=== PATIENT | female | born 1975 | race Caucasian/White ===

== ENCOUNTER 2020-11-16 15:00 | Emergency (ER) | payer OTHER, SELFPAY ==
[2020-11-16 15:11] VITALS: BP 149/82; PULSE 79; RESP 16; TEMP 36.5; O2SAT 99
--- NOTE | 2020-11-16 15:13 | ED.ABDPAIN ---
HPI - Abdominal Pain General Chief Complaint: Abdominal Pain Stated Complaint: Abdominal Pain History of Present Illness HPI narrative: This is a 45-year-old comes in complaining eating [employer] approximately 9:00 last night states that she started nausea and vomiting that continued throughout the night until approximately 2 AM patient states she did have some diarrhea and denies any fever. Patient states that she has a history of ulcers and has not taken the medication and does not know the name of the medications. Patient states that the vomiting has went away but she is still nauseated. Related Data Home Medications Medication Instructions Recorded Confirmed aspirin [Adult Aspirin] 81 mg PO DAILY 11/16/20 11/16/20 Allergies Allergy/AdvReac Type Severity Reaction Status Date / Time Penicillins Allergy Intermediate Hives / Verified 11/16/20 15:25 Red Face tomato Allergy Mild hives Verified 11/16/20 15:25 Review of Systems Review of Systems: CONSTITUTIONAL: Denies fever, chills, or sweats. EYES: Denies visual changes, redness, or discharge. ENT: Denies rhinorrhea, congestion, sore throat, or otalgia. CARDIOVASCULAR:Denies chest pain, palpitations, or edema. RESPIRATORY: Denies cough or dyspnea. GASTROINTESTINAL: Reports abdominal pain, nausea, vomiting, or diarrhea. GENITOURINARY: Denies dysuria or hematuria. SKIN:Denies rash or itching. MUSCULOSKELETAL:Denies back pain, joint pain, or myalgia. NEUROLOGIC: Denies headache, numbness, or weakness. PSYCHIATRIC:Denies anxiety or depression PMFSH Comments At time as signature, I have reviewed and agree with nursing past medical, social, surgical and family history. Please see nursing chart for further information. There is no relevant family history pertinent to the presenting complaint. Exam Narrative: GENERAL:Well-appearing, well-nourished, and in no acute distress. HEAD:Normocephalic, atraumatic. EYES: PERRLA and EOMI. ENT: Nares clear, no rhinorrhea or epistaxis. Mucous membranes moist. NECK: Supple. CHEST: Clear to auscultation. No respiratory distress. HEART: Regular rate and rhythm. Normal peripheral pulses. ABDOMEN: Soft, nontender, normal active bowel sounds. EXTREMITIES: Normal range of motion. No edema. SKIN: Warm, dry, no rash. NEURO: No focal deficits. Alert and oriented x3. Course Vital Signs Vital signs: Vital Signs Temperature 97.7 F 11/16/20 15:11 Pulse Rate 79 11/16/20 15:11 Respiratory Rate 16 11/16/20 15:11 Blood Pressure 149/82 H 11/16/20 15:11 Pulse Oximetry 99 11/16/20 15:11 Temperature 97.7 F 11/16/20 15:11 Pulse Rate 79 11/16/20 15:11 Respiratory Rate 16 11/16/20 15:11 Blood Pressure 149/82 H 11/16/20 15:11 Pulse Oximetry 99 11/16/20 15:11 MDM - Abdominal Pain Differential Diagnosis Differential diagnosis: Likely abdominal pain, acute appendicitis, constipation and gastroenteritis Lab Data Labs: Urine Glucose Negative Reference Range: Negative Urine Bilirubin 1+ Reference Range: Negative Urine Ketone Trace Reference Range: Negative Urine Specific [place] 1.030 Reference Range:1.001-1.035 Urine Blood Negative Reference Range: Negative * * Urine pH 6.0 Reference Range: 5.0-9.0 Urine Protein 1+ Reference Range: Negative Urine Urobilinogen 0.2 Reference Range: 0.2-1.0 Urine Nitrate
[2020-11-16] MEDS: ONDANSETRON HCL ODT 4 MG TABLET PO (15:25)
--- NOTE | 2020-11-16 15:52 | PC.NURSE ---
decrease in nausea
== END 2020-11-16 15:38 | disposition home or self-care (01) ==
PROVIDERS: Emergency Provider Nurse Practitioner Family
DX: N30.00 Acute cystitis without hematuria (principal); Z86.73 Personal history of transient ischemic attack (TIA), and cerebral infarction without residual deficits
CPT/HCPCS: 81003; 99213; A9270; G0463

== ENCOUNTER 2021-11-11 18:20 | Emergency (ER) | payer OTHER, SELFPAY ==
--- NOTE | 2021-11-11 18:42 | ED.HA ---
HPI - Headache General Chief Complaint: Headache Stated Complaint: Migraine Time Seen by Provider: 11/11/21 19:02 Mode of arrival: ambulatory Limitations: no limitations History of Present Illness HPI Narrative: 46-year-old female presents with concern for headache. She reports headache started today. She reports history of migraine. Reports today she has had right-sided head pain that is radiating to her right-sided neck and her ear. She denies any [id number] medication for her headache. She also reports over the last 4 to 5 days she has had a cough with some runny nose. She denies nausea, vomiting, vision changes, weakness in any extremity. MD elicited complaint: headache Related Data Home Medications Medication Instructions Recorded Confirmed aspirin 81 mg tablet 81 mg PO DAILY 11/16/20 11/16/20 Lipitor 11/11/21 carvedilol 6.25 mg tablet mg 11/11/21 clopidogrel 75 mg tablet (Plavix) mg 11/11/21 furosemide 40 mg tablet mg 11/11/21 lisinopril 5 mg tablet mg 11/11/21 nitroglycerin 11/11/21 potassium chloride 10 mEq meq PO 11/11/21 tablet,extended release Allergies Allergy/AdvReac Type Severity Reaction Status Date / Time Penicillins Allergy Intermediate Hives / Verified 11/16/20 15:25 Red Face tomato Allergy Mild hives Verified 11/16/20 15:25 Review of Systems Review of Systems: CONSTITUTIONAL: Denies malaise, chills, sweats, or fever. EYES: Denies visual changes, redness, or discharge. ENT: Reports rhinorrhea, ear pain. Denies congestion, sinus pain, sore throat. CARDIOVASCULAR: Denies chest pain, palpitations, or edema. RESPIRATORY: Report cough. Denies dyspnea. GASTROINTESTINAL: Denies nausea, vomiting MUSCULOSKELETAL: Denies myalgia. NEUROLOGIC: Denies numbness, weakness. Reports headache. All systems reviewed & are unremarkable except as noted in HPI and below PMFSH Comments At time of signature, agree with nursing past medical, surgical, social and family history. There is no relevant family history pertinent to the presenting complaint Exam Narrative: GENERAL: Well-appearing, well-nourished, and in no acute distress. HEAD: Normocephalic, atraumatic. EYES: PERRLA, sclera clear, and EOMI. No nystagmus. ENT: Nares clear, turbinates pink, no rhinorrhea or epistaxis. Mucous membranes moist. TM pearly villar with sharp light reflex bilaterally; no tragal tenderness. Oropharynx without erythema or lesions. Tonsils not enlarged and without exudate. NECK: Supple. No lymphadenopathy. No jugular venous distension, thyromegaly, or carotid bruits. Carotids were easily palpable bilaterally. CHEST: No respiratory distress. Clear to auscultation. No bony deformities, no asymmetry. Speaks in full sentences. HEART: Regular rate and rhythm. No murmur heard. Normal peripheral pulses. ABDOMEN: Soft, nontender, nondistended, normal active bowel sounds, no palpable masses. EXTREMITIES: Normal range of motion. No edema. Normal strength and sensation. SKIN: Warm, dry, no visible rash. NEURO: Alert and oriented x3. No focal deficits. Cranial nerves II through XII grossly intact PSYCH: Normal mood and affect Course Course Emergency Course: Patient is aware of diagnosis, understands and agrees to treatment plan. Anticipatory guidance given. Patient agrees to follow-up as directed and is aware of reasons to seek care at the emergency department. Portions of this record may have been created with voice recognition software Level of Care: Express Care Visit Vital Signs Vital signs: Reviewed. MDM - Headache MDM Narrative Medical decision making narrative: The patient presents with an acute onset headache for 1 day in duration. Patient has no past history of headaches. There is not a history of anticoagulation, trauma, , cancer or immunocompromised state. Mental status was normal, no neurological deficits were noted. Differential Diagnosis considered includes hypertensive emergency, subarachnoid
[2021-11-11 18:47] VITALS: BP 107/60; PULSE 62; RESP 16; TEMP 36; O2SAT 98
[2021-11-11] MEDS: KETOROLAC (*BKC) 60 MG/2 ML VIAL IM (19:08)
== END 2021-11-11 19:40 | disposition home or self-care (01) ==
PROVIDERS: Emergency Provider Nurse Practitioner
DX: R51.9 Headache, unspecified (principal); Z20.822 Contact with and (suspected) exposure to COVID-19; Z79.82 Long term (current) use of aspirin; E78.00 Pure hypercholesterolemia, unspecified; I25.2 Old myocardial infarction; Z86.73 Personal history of transient ischemic attack (TIA), and cerebral infarction without residual deficits; Z86.16 Personal history of COVID-19
CPT/HCPCS: 87426; 96372; 99213; C9803; G0463; J1885

== ENCOUNTER 2023-01-31 13:02 | Emergency (ER) | payer OTHER, SELFPAY ==
[2023-01-31 13:19] VITALS: BP 112/70; PULSE 81; RESP 16; TEMP 36.6; O2SAT 98
--- NOTE | 2023-01-31 13:28 | ED.DENTAL ---
HPI - Dental/Oral General Chief complaint: Dental/Oral Stated complaint: Dental Pain Time Seen by Provider: 01/31/23 13:20 Source: patient Mode of arrival: ambulatory Limitations: no limitations History of Present Illness HPI Narrative: Lula is a 48-year-old female patient presenting to the clinic today with complaints left upper dental pain. She reports that she has had this for over the last few days. No known fever chills. Is having increase in swelling and pain to the left upper maxilla area. Very poor dentition. Has a dentist appointment scheduled for next . Related Data Home Medications Medication Instructions Recorded Confirmed aspirin 81 mg tablet 81 mg PO DAILY 11/16/20 11/16/20 Lipitor 11/11/21 carvedilol 6.25 mg tablet mg 11/11/21 furosemide 40 mg tablet mg 11/11/21 lisinopril 5 mg tablet mg 11/11/21 nitroglycerin 11/11/21 potassium chloride 10 mEq meq PO 11/11/21 tablet,extended release rivaroxaban 2.5 mg tablet (Xarelto) mg 01/31/23 sacubitril 49 mg-valsartan 51 mg tablet 01/31/23 tablet (Entresto) Allergies Allergy/AdvReac Type Severity Reaction Status Date / Time Penicillins Allergy Intermediate Hives / Verified 11/16/20 15:25 Red Face tomato Allergy Mild hives Verified 11/16/20 15:25 Review of Systems Review of Systems: Pertinent positives per HPI. Patient denies any fever, chills, rash, headache, visual changes, dizziness, cough, runny nose, sore throat, shortness of breath, chest pain, palpitations, nausea, vomiting, diarrhea, constipation, abdominal pain, or any urinary issues. PMFSH Comments At the time of my signature, I reviewed and agree with the nursing past medical, surgical, social, and family history. There is no relevant family history pertinent to the patient complaint. Exam Narrative: General: Well-developed, well nourished, in no apparent distress Head: Normocephalic, atraumatic Eyes: Pupils equally round and reactive to light bilaterally, EOM intact, sclera and conjunctive clear, no discharge, lids normal Ears: TMs intact and clear, ear canals clear, no drainage, grossly hearing normal. Nose: Nares patent, no discharge, no inflammation, no sinus tenderness. Mouth: Oropharynx without lesions or masses, very poor dentition, MMM. Multiple decayed teeth to the left upper gums with moderate swelling-no fluctuance Neck: Supple, trachea midline, no enlargement of anterior or posterior cervical nodes, no thyroid masses or goiter palpable. Cardio: Regular rate and rhythm, s1 and s2 normal, no murmur appreciated. Resp: Clear to auscultation bilaterally anteriorly and posteriorly, no rhonchi, rales, wheezing or rubs Course Course Emergency Course: Portions of this record may have been created with voice recognition software. Level of Care: Express Care Visit Vital Signs Vital signs: Vital Signs Temperature 36.6 C 01/31/23 13:19 Pulse Rate 81 01/31/23 13:19 Respiratory Rate 16 01/31/23 13:19 Blood Pressure 112/70 01/31/23 13:19 Pulse Oximetry 98 01/31/23 13:19 Oxygen Delivery Room Air 01/31/23 13:19 Temperature 36.6 C 01/31/23 13:19 Pulse Rate 81 01/31/23 13:19 Respiratory Rate 16 01/31/23 13:19 Blood Pressure 112/70 01/31/23 13:19 Pulse Oximetry 98 01/31/23 13:19 Oxygen Delivery Room Air 01/31/23 13:19 Vital signs reviewed MDM - Dental/Oral MDM Narrative Medical decision making narrative: At the time of visit patient is resting comfortably on the exam table. I suspect patient has a dental infection. Prescription for tramadol and clindamycin was sent to the pharmacy. Supportive measures were discussed with the patient he she voiced understanding discharge instructions agrees to treatment plan. Differential Diagnosis Differential diagnosis: Likely gingival abscess, dental caries, toothache, dental abscess, fracture of tooth and aphthous ulcer Discharge Plan Discharge Clinical Im
== END 2023-01-31 13:38 | disposition home or self-care (01) ==
PROVIDERS: Emergency Provider Nurse Practitioner Family
DX: K02.9 Dental caries, unspecified (principal); K04.7 Periapical abscess without sinus; E78.00 Pure hypercholesterolemia, unspecified; Z86.73 Personal history of transient ischemic attack (TIA), and cerebral infarction without residual deficits; I25.2 Old myocardial infarction; Z86.16 Personal history of COVID-19
CPT/HCPCS: 99213; A4565; G0463

== ENCOUNTER 2023-03-26 15:18 | Emergency (ER) | payer OTHER, SELFPAY ==
--- NOTE | ~2023-03-26 | XR_ITS ---
EXAMINATION: XR chest 2V 03/26/2023 16:40 INDICATION: Shortness of breath PROCEDURE: 2 view chest COMPARISON: No prior studies for comparison. FINDINGS: The lungs are clear. Status post median sternotomy for CABG. The cardiomediastinal silhouet te is within normal limits. There are no pleural effusions. There is no pneumothorax suspected. Th ere are residual epicardial leads in the anterior chest wall. All IMPRESSION: 1: NO ACUTE CARDIOPULMONARY DISEASE. Reviewed, dictated and finalized at location [facility]
[2023-03-26 15:25] VITALS: BP 97/69; PULSE 78; RESP 16; TEMP 36.4; O2SAT 97
[2023-03-26 16:55] LABS: Influenza A QL RT-PCR Positive (Negative); Influenza B QL RT-PCR Negative (Negative); RSV RNA, RT-PCR Negative (Negative); SARS-CoV-2 RNA PCR Negative (Negative)
[2023-03-26 17:00] VITALS: PULSE 78; RESP 18
[2023-03-26] MEDS: IPRATROPIUM BR 0.02% INH SOLN 0.5 MG/2.5 ML VIAL 1.5 MG INHALATION (17:06)
[2023-03-26] MEDS: ALBUTEROL SULFATE NEB 2.5 MG/3 ML INH 15 MG INHALATION (17:06)
[2023-03-26 17:38] VITALS: PULSE 81; RESP 18
--- NOTE | 2023-03-26 18:00 | ED.GENADULT ---
HPI - General Adult General Chief complaint: Upper Respiratory Infection Stated complaint: FEVER, COUGH,CONGESTION Time Seen by Provider: 03/26/23 15:59 History of Present Illness HPI narrative: Including a patient is a 48-year-old female who presents ER with cough. Ongoing for 3 days. Says shows some congestion. Nonproductive. Mild dyspnea. No chest pain or chest pressure. No known sick contacts. No alleviating factors and she has found. Related Data Home Medications Medication Instructions Recorded Confirmed aspirin 81 mg tablet 81 mg PO DAILY 11/16/20 11/16/20 Lipitor 11/11/21 carvedilol 6.25 mg tablet mg 11/11/21 furosemide 40 mg tablet mg 11/11/21 lisinopril 5 mg tablet mg 11/11/21 nitroglycerin 11/11/21 potassium chloride 10 mEq meq PO 11/11/21 tablet,extended release rivaroxaban 2.5 mg tablet (Xarelto) mg 01/31/23 sacubitril 49 mg-valsartan 51 mg tablet 01/31/23 tablet (Entresto) Allergies Allergy/AdvReac Type Severity Reaction Status Date / Time Penicillins Allergy Intermediate Hives / Verified 11/16/20 15:25 Red Face tomato Allergy Mild hives Verified 11/16/20 15:25 Review of Systems Review of Systems: All systems reviewed & are unremarkable except as noted in HPI and below Constitutional: Constitutional: Reports chills, Reports fatigue and Reports fever(s) ENT: Reports nasal congestion and Denies sore throat Cardiovascular: Cardiovascular: Reports no additional cardiovascular complaints Respiratory: Respiratory: Reports cough, Reports dyspnea and Reports wheezing PMFSH Past Medical History Medical History (Updated 03/26/23 @ 19:32 by Enoc Al MD) Coronary artery disease Hypertension Surgical History Surgical History (Updated 03/26/23 @ 19:32 by Enoc Al MD) Hx of CABG Social History Social History (Updated 03/26/23 @ 19:32 by Enoc Al MD) Smoking status: Former smoker Smoking end date: 05/03/22 Exam Narrative: GENERAL: fatigue-appearing, well-nourished, and in no acute distress. HEAD: Normocephalic, atraumatic.. ENT: Mucous membranes moist. CHEST: diffuse expiratory wheezing and frequent coughing. HEART: Regular rate and rhythm. Normal peripheral pulses. ABDOMEN: Soft, nontender, nondistended. EXTREMITIES: Normal range of motion. No edema. SKIN: Warm, dry, no rash. NEURO: Alert and oriented x3. PSYCH: Normal mood and affect. Course Course Emergency Course: Ambulatory without hypoxia. Lung sounds markedly improved with hour long nebulizer treatment. Discharge home with albuterol and prednisone. Vital Signs Vital signs: Vital Signs Temperature 97.5 F L 03/26/23 15:25 Pulse Rate 78 03/26/23 15:25 Respiratory Rate 16 03/26/23 15:25 Blood Pressure 97/69 L 03/26/23 15:25 Pulse Oximetry 97 03/26/23 15:25 Oxygen Delivery Room Air 03/26/23 15:25 Temperature 97.5 F L 03/26/23 15:25 Pulse Rate 81 03/26/23 17:38 Respiratory Rate 18 03/26/23 17:38 Blood Pressure 111/69 03/26/23 18:08 Pulse Oximetry 97 03/26/23 15:25 Oxygen Delivery Room Air 03/26/23 16:13 Medical Decision Making Vital Signs Vital Signs: Vital Signs Temperature 97.5 F L 03/26/23 15:25 Pulse Rate 78 03/26/23 15:25 Respiratory Rate 16 03/26/23 15:25 Blood Pressure 97/69 L 03/26/23 15:25 Pulse Oximetry 97 03/26/23 15:25 Oxygen Delivery Room Air 03/26/23 15:25 Temperature 97.5 F L 03/26/23 15:25 Pulse Rate 81 03/26/23 17:38 Respiratory Rate 18 03/26/23 17:38 Blood Pressure 111/69 03/26/23 18:08 Pulse Oximetry 97 03/26/23 15:25 Oxygen Delivery Room Air 03/26/23 16:13 Lab Data Labs: Lab Results 03/26/23 Range/Units 16:11 Influenza A (RT-PCR) Positive A (Negative) Influenza B (RT-PCR) Negative (Negative) RSV (RT-PCR) Negative (Negative) SARS-CoV-2 RNA (RT-PCR) Negative (Negative) Imaging Data Radiologist
--- NOTE | 2023-03-26 18:06 | PC.NURSE ---
Pt was 96% on RA and HR 94 wit walking pulse ox.
[2023-03-26 18:08] VITALS: BP 111/69
== END 2023-03-26 18:29 | disposition home or self-care (01) ==
PROVIDERS: Emergency Medicine; Emergency Provider Emergency Medicine
DX: J11.1 Influenza due to unidentified influenza virus with other respiratory manifestations (principal); J40 Bronchitis, not specified as acute or chronic; I25.10 Atherosclerotic heart disease of native coronary artery without angina pectoris; I10 Essential (primary) hypertension; Z87.891 Personal history of nicotine dependence; Z20.822 Contact with and (suspected) exposure to COVID-19
CPT/HCPCS: 71046; 87637; 94640; 99283

== ENCOUNTER 2023-07-18 10:53 | Emergency (ER) | payer OTHER, SELFPAY ==
[2023-07-18 11:04] VITALS: BP 112/69; PULSE 73; RESP 18; TEMP 36.4; O2SAT 100
--- NOTE | 2023-07-18 11:26 | ED.URI ---
HPI - URI/Sore Throat General Chief Complaint: Upper Respiratory Infection Stated Complaint: Sinus Time Seen by Provider: 07/18/23 11:15 Source: patient and RN notes reviewed Mode of arrival: ambulatory Limitations: no limitations History of Present Illness HPI Narrative: Patient presents today with a 3 day history of cough, congestion, chills and sweats. Patient also states she vomited 4 times yesterday, but none today and has been able to drink successfully. Denies nausea or known fever. She has been taking pseudoephedrine without relief. Denies known sick contacts or any additional symptoms. Related Data Home Medications Medication Instructions Recorded Confirmed aspirin 81 mg tablet 81 mg PO DAILY 11/16/20 07/18/23 Lipitor 40 mg PO DAILY 11/11/21 07/18/23 carvedilol 6.25 mg tablet 6.25 mg PO DAILY 11/11/21 07/18/23 furosemide 40 mg tablet 40 mg PO DAILY 11/11/21 07/18/23 lisinopril 5 mg tablet 5 mg PO DAILY 11/11/21 07/18/23 nitroglycerin 4 mg PO DAILY 11/11/21 07/18/23 potassium chloride 10 mEq 10 meq PO DAILY 11/11/21 07/18/23 tablet,extended release rivaroxaban 2.5 mg tablet (Xarelto) 2.5 mg PO DAILY 01/31/23 07/18/23 sacubitril 49 mg-valsartan 51 mg 1 tablet PO DAILY 01/31/23 07/18/23 tablet (Entresto) Allergies Allergy/AdvReac Type Severity Reaction Status Date / Time Penicillins Allergy Intermediate Hives / Verified 07/18/23 10:54 Red Face tomato Allergy Mild hives Verified 07/18/23 10:54 Review of Systems Review of Systems: CONSTITUTIONAL: Denies body aches, fever. + chills, sweats EYES: Denies visual changes, redness, or discharge. ENT: Denies rhinorrhea, sore throat, or otalgia.+ congestion CARDIOVASCULAR: Denies chest pain, palpitations, or edema. RESPIRATORY: Denies dyspnea.+ cough GASTROINTESTINAL: Denies abdominal pain, nausea, vomiting, or diarrhea. GENITOURINARY: Denies dysuria or hematuria. SKIN: Denies rash, itching, or wounds. MUSCULOSKELETAL: Denies back pain, joint pain, or myalgia. NEUROLOGIC: Denies headache, numbness, tingling, or weakness. PSYCH: Denies depression or anxiety. [facility] Past Medical History Medical History Coronary artery disease Hypertension Surgical History Surgical History Hx of CABG Social History Social History Smoking status: Former smoker Smoking end date: 05/03/22 Comments At time of signature, I have reviewed and agree with nursing past medical, surgical, social and family history unless otherwise noted. Please see nursing chart for further information. There is no relevant family history pertinent to the presenting complaint Exam Narrative: GENERAL: Mildly ill-appearing, well-nourished, and in no acute distress. HEAD: Normocephalic, atraumatic. EYES: EOMI. No redness or drainage. Conjunctivae normal. ENT: Mucous membranes pink and moist. Nares congested. No rhinorrhea. TMs normal bilaterally. Throat normal. Uvula midline. NECK: Normal AROM. Supple. No lymphadenopathy. CHEST: No respiratory distress. Clear to auscultation. HEART: Regular rate and rhythm. No murmur appreciated. EXTREMITIES: Normal range of motion. No edema. SKIN: Warm, dry, no rash. Capillary refill normal. Normal skin turgor. NEURO: No focal deficits. Alert and oriented x3. Gait steady. PSYCH: Normal affect. No signs of depression or anxiety. Course Course Level of Care: Express Care Visit Vital Signs Vital signs: Vital Signs Temperature 97.6 F 07/18/23 11:04 Pulse Rate 73 07/18/23 11:04 Respiratory Rate 18 07/18/23 11:04 Blood Pressure 112/69 07/18/23 11:04 Pulse Oximetry 100 07/18/23 11:04 Oxygen Delivery Room Air 07/18/23 11:04 Temperature 97.6 F 07/18/23 11:04 Pulse Rate 73 07/18/23 11:04 Respiratory Rate 18 07/18/23 1
== END 2023-07-18 11:40 | disposition home or self-care (01) ==
PROVIDERS: Emergency Provider Nurse Practitioner
DX: J06.9 Acute upper respiratory infection, unspecified (principal); Z20.822 Contact with and (suspected) exposure to COVID-19; I25.10 Atherosclerotic heart disease of native coronary artery without angina pectoris; I10 Essential (primary) hypertension; Z95.5 Presence of coronary angioplasty implant and graft; Z87.891 Personal history of nicotine dependence; Z79.82 Long term (current) use of aspirin
CPT/HCPCS: 87426; 87804; 99213; G0463

== ENCOUNTER 2023-08-10 12:21 | Emergency (ER) | payer OTHER, SELFPAY ==
--- NOTE | 2023-08-10 12:29 | ED.URI ---
HPI - URI/Sore Throat General Chief Complaint: Upper Respiratory Infection Stated Complaint: cough,nasal congestion Time Seen by Provider: 08/10/23 12:30 Source: patient and RN notes reviewed Mode of arrival: ambulatory Limitations: no limitations History of Present Illness HPI Narrative: 48-year-old female presents with concern for more than 3 week history of sinus congestion, pressure, drainage, pain, cough. Reports she has been taking [id number] medications without relief. She denies fever. MD elicited complaint: cough, nasal congestion and sinus pain Related Data Home Medications Medication Instructions Recorded Confirmed aspirin 81 mg tablet 81 mg PO DAILY 11/16/20 08/10/23 Lipitor 40 mg PO DAILY 11/11/21 08/10/23 carvedilol 6.25 mg tablet 6.25 mg PO DAILY 11/11/21 08/10/23 furosemide 40 mg tablet 40 mg PO DAILY 11/11/21 08/10/23 lisinopril 5 mg tablet 5 mg PO DAILY 11/11/21 08/10/23 nitroglycerin 4 mg PO DAILY 11/11/21 08/10/23 potassium chloride 10 mEq 10 meq PO DAILY 11/11/21 08/10/23 tablet,extended release rivaroxaban 2.5 mg tablet (Xarelto) 2.5 mg PO DAILY 01/31/23 08/10/23 sacubitril 49 mg-valsartan 51 mg 1 tablet PO DAILY 01/31/23 08/10/23 tablet (Entresto) Allergies Allergy/AdvReac Type Severity Reaction Status Date / Time Penicillins Allergy Intermediate Hives / Verified 08/10/23 12:23 Red Face tomato Allergy Mild hives Verified 08/10/23 12:23 Review of Systems Review of Systems: CONSTITUTIONAL: Denies malaise, chills, sweats, or fever. EYES: Denies visual changes, redness, or discharge. ENT: Reports rhinorrhea, congestion, sinus pain CARDIOVASCULAR: Denies chest pain, palpitations, or edema. RESPIRATORY: Reports cough. Denies dyspnea. GASTROINTESTINAL: Denies abdominal pain, nausea, vomiting, diarrhea SKIN: Denies rash or itching. MUSCULOSKELETAL: Denies myalgia. NEUROLOGIC: Denies headache. All systems reviewed & are unremarkable except as noted in HPI and below PMFSH Past Medical History Medical History Coronary artery disease Hypertension Surgical History Surgical History Hx of CABG Social History Social History Smoking status: Former smoker Smoking end date: 05/03/22 Comments At time of signature, agree with nursing past medical, surgical, social and family history. There is no relevant family history pertinent to the presenting complaint Exam Narrative: GENERAL: Well-appearing, well-nourished, and in no acute distress. HEAD: Normocephalic EYES: PERRLA, conjunctivae clear ENT: Nares clear, turbinates edematous and erythematous, clear discharge. Mucous membranes moist. TM pearly villar with dull light reflex bilaterally; no tragal tenderness. Oropharynx not erythematous without lesions. Tonsils not enlarged and without exudate, no drooling, no hoarseness, no trismus, uvula midline. NECK: Supple. No lymphadenopathy CHEST: Clear to auscultation, breath sounds equal. No wheezing, rhonchi, rales, or stridor. No respiratory distress, speaks in full sentences. Cough noted HEART: Regular rate and rhythm. No murmur heard. SKIN: Warm, dry, no rash. NEURO: Alert and oriented x3. PSYCH: Normal mood and affect Course Course Emergency Course: Patient is aware of diagnosis, understands and agrees to treatment plan. Anticipatory guidance given. Patient agrees to follow-up as directed and is aware of reasons to seek care at the emergency department. Portions of this record may have been created with voice recognition software Level of Care: Express Care Visit Vital Signs Vital signs: Reviewed. MDM - URI/Sore Throat MDM Narrative Medical decision making narrative: Differential diagnosis considered: [place]nel[place] virus, strep pharyngitis, allergic rhinitis, upper respiratory tract infection,
[2023-08-10 12:40] VITALS: BP 110/63; PULSE 72; RESP 20; TEMP 36.2; O2SAT 98
== END 2023-08-10 12:50 | disposition home or self-care (01) ==
PROVIDERS: Emergency Provider Nurse Practitioner
DX: J32.9 Chronic sinusitis, unspecified (principal); J40 Bronchitis, not specified as acute or chronic; I25.10 Atherosclerotic heart disease of native coronary artery without angina pectoris; I10 Essential (primary) hypertension; Z87.891 Personal history of nicotine dependence; Z79.82 Long term (current) use of aspirin
CPT/HCPCS: 99213; G0463

== ENCOUNTER 2023-12-23 12:21 | Emergency (ER) | payer OTHER, SELFPAY ==
[2023-12-23 12:28] VITALS: BP 157/93; PULSE 80; RESP 16; TEMP 36.7; O2SAT 100
[2023-12-23 13:36] LABS: EDCOVIDSCREEN Positive (Negative)
--- NOTE | 2023-12-23 13:36 | ED.GENADULT ---
HPI - General Adult General Chief complaint: Upper Respiratory Infection Stated complaint: Sinus Source: patient Mode of arrival: ambulatory Limitations: no limitations History of Present Illness HPI narrative: Patient presents for evaluation of sick symptoms for the last 3 days. Symptoms include chills, headache, nausea vomiting, diarrhea, cough, body aches. She had a fever the day of symptom onset but none since that time. She has tried taking DayQuil, NyQuil, and Mucinex for symptoms. No specific sick contacts to her knowledge but her daughter works in a daycare. She smokes cigarettes occasionally but smokes marijuana regularly. Related Data Home Medications Medication Instructions Recorded Confirmed aspirin 81 mg tablet 81 mg PO DAILY 11/16/20 12/23/23 Lipitor 40 mg PO DAILY 11/11/21 12/23/23 carvedilol 6.25 mg tablet 6.25 mg PO DAILY 11/11/21 12/23/23 lisinopril 5 mg tablet 5 mg PO DAILY 11/11/21 12/23/23 nitroglycerin 4 mg PO DAILY 11/11/21 12/23/23 potassium chloride 10 mEq 10 meq PO DAILY 11/11/21 12/23/23 tablet,extended release rivaroxaban 2.5 mg tablet (Xarelto) 2.5 mg PO DAILY 01/31/23 12/23/23 sacubitril 49 mg-valsartan 51 mg 1 tablet PO DAILY 01/31/23 12/23/23 tablet (Entresto) empagliflozin 25 mg tablet 25 mg PO DAILY 12/23/23 12/23/23 (Jardiance) ezetimibe 10 mg tablet 10 mg PO DAILY 12/23/23 12/23/23 furosemide 20 mg tablet 20 mg PO DAILY 12/23/23 12/23/23 spironolactone 25 mg tablet 25 mg PO DAILY 12/23/23 12/23/23 Allergies Allergy/AdvReac Type Severity Reaction Status Date / Time Penicillins Allergy Intermediate Hives / Verified 12/23/23 12:30 Red Face tomato Allergy Mild hives Verified 12/23/23 12:30 Review of Systems Review of Systems: CONSTITUTIONAL: reports recent fever, none currently. Reports chills. EYES: Denies visual changes, redness, or discharge. ENT: Denies rhinorrhea, congestion, sore throat, or otalgia. CARDIOVASCULAR: Denies chest pain, palpitations, or edema. RESPIRATORY: Reports cough and shortness of breath. GASTROINTESTINAL: reports nausea, vomiting, diarrhea GENITOURINARY: Denies dysuria or hematuria. SKIN: Denies rash or itching. MUSCULOSKELETAL: reports generalized body aches NEUROLOGIC: Reports headache. Denies numbness, dizziness, or weakness. PSYCHIATRIC: Denies anxiety or depression. [facility] Past Medical History Medical History Coronary artery disease Hyperlipidemia Hypertension Surgical History Surgical History Hx of CABG Family History Family History Mother Family history non-contributory Social History Social History Smoking status: Current some day smoker Tobacco type: cigarettes Smoking end date: 05/03/22 Substance use: current Substance use type: marijuana Living arrangements: with family Gender identity (if verbalized by the patient): Female Exam Narrative: GENERAL: appears acutely ill but nontoxic. HEAD: Normocephalic, atraumatic. EYES: PERRLA and EOMI. ENT: Nares clear, no rhinorrhea or epistaxis. Mucous membranes moist. Oropharynx without tonsillar hypertrophy exudate or other lesions. Bilateral TMs pearly villar nonbulging NECK: Supple. No adenopathy or masses. No carotid bruits or JVD CHEST: Clear to auscultation. No respiratory distress. No wheezes rales or rhonchi HEART: Regular rate and rhythm. No murmur heard. Normal peripheral pulses. ABDOMEN: Soft, nontender, nondistended, normal active bowel sounds. EXTREMITIES: Normal range of motion. No edema. SKIN: Warm, dry, no rash. NEURO: No focal deficits. Alert and oriented x3. PSYCH: Normal mood and affect. Course Course Emergency Course: This is a 48-year-old female who presented for evaluation
== END 2023-12-23 13:40 | disposition home or self-care (01) ==
PROVIDERS: Emergency Provider Nurse Practitioner
DX: U07.1 COVID-19 (principal); Z72.0 Tobacco use; F12.90 Cannabis use, unspecified, uncomplicated; I25.10 Atherosclerotic heart disease of native coronary artery without angina pectoris; E78.5 Hyperlipidemia, unspecified; I10 Essential (primary) hypertension; Z95.1 Presence of aortocoronary bypass graft; Z79.82 Long term (current) use of aspirin; Z79.01 Long term (current) use of anticoagulants
CPT/HCPCS: 87426; 99213; G0463

== ENCOUNTER 2024-04-19 09:02 | Emergency (ER) | payer MEDICAID, SELFPAY ==
[2024-04-19 09:08] VITALS: BP 139/95; PULSE 100; RESP 20; TEMP 36.3; O2SAT 100
--- NOTE | 2024-04-19 09:12 | ECG_ITS ---
Test Date: 2024-04-19 09:19:25 Measurements Intervals [place] Rate: 81 P: 64 ND: 157 QRS: 83 QRSD: 106 T: 6 QT: 385 QTc: 448 Interpretive Statements SINUS RHYTHM POSSIBLE LEFT ATRIAL ENLARGEMENT [-0.1mV P WAVE IN V1/V2] No previous ECG available for comparison Electronically Signed On 04-19-2024 10:48:25 HUMAN RESOURCE ADVISOR by Nakul Tesfaye M.D.
--- NOTE | 2024-04-19 09:33 | ED_ITS ---
HPI - Chest Pain General Chief Complaint: Chest Pain Stated Complaint: Chest Wall Pain/Back Pain Time Seen by Provider: 04/19/24 09:04 Source: patient Mode of arrival: ambulatory Limitations: no limitations History of Present Illness HPI narrative: Lula is a 49-year-old female patient presenting to the clinic today with complaints of back pain. States that she is having pain across her shoulder blades she is also experiencing nausea and vomiting. Nausea and vomiting started yesterday around 530. States she has vomited approximately 7 times. Back pain across the shoulder blades started around 2:00 a.m. this morning she says this is typical pain from when she has had 2 previous MIs. Denies any associated shortness of breath. No URI symptoms or fever. Also has a history of stroke, triple bypass, coronary artery disease, diabetes, and hyperlipidemia. Related Data Home Medications ?Medication ?Instructions ?Recorded ?Confirmed ?Last Taken ?Type aspirin 81 mg tablet 81 mg PO DAILY 11/16/20 12/23/23 Unknown History Lipitor 40 mg PO DAILY 11/11/21 12/23/23 Unknown History carvedilol 6.25 mg tablet 6.25 mg PO DAILY 11/11/21 12/23/23 Unknown History lisinopril 5 mg tablet 5 mg PO DAILY 11/11/21 12/23/23 Unknown History nitroglycerin 4 mg PO DAILY 11/11/21 12/23/23 Unknown History potassium chloride 10 mEq 10 meq PO DAILY 11/11/21 12/23/23 Unknown History tablet,extended release rivaroxaban 2.5 mg tablet (Xarelto) 2.5 mg PO DAILY 01/31/23 12/23/23 Unknown History sacubitril 49 mg-valsartan 51 mg 1 tablet PO DAILY 01/31/23 12/23/23 Unknown History tablet (Entresto) empagliflozin 25 mg tablet 25 mg PO DAILY 12/23/23 12/23/23 Unknown History (Jardiance) ezetimibe 10 mg tablet 10 mg PO DAILY 12/23/23 12/23/23 Unknown History furosemide 20 mg tablet 20 mg PO DAILY 12/23/23 12/23/23 Unknown History spironolactone 25 mg tablet 25 mg PO DAILY 12/23/23 12/23/23 Unknown History Allergies Allergy/AdvReac Type Severity Reaction Status Date / Time Penicillins Allergy Intermediate Hives / Verified 04/19/24 09:06 Red Face tomato Allergy Mild hives Verified 04/19/24 09:06 Review of Systems Review of Systems: Pertinent positives per HPI. Patient denies any fever, chills, rash, headache, visual changes, dizziness, cough, runny nose, sore throat, shortness of breath, palpitations, nausea, vomiting, diarrhea, constipation, abdominal pain, or any urinary issues. PMFSH Past Medical History Medical History Hyperlipidemia Hypertension Coronary artery disease Surgical History Surgical History Hx of CABG Family History Family History Mother Family history non-contributory Social History Social History Smoking status: Current some day smoker Tobacco type: cigarettes Smoking end date: 05/03/22 Substance use: current Substance use type: marijuana Living arrangements: with family Gender identity (if verbalized by the patient): Female Comments At the time of my signature, I reviewed and agree with the nursing past medical, surgical, social, and family history. There is no relevant family history pertinent to the patient complaint. Exam Narrative: General: Well-developed, well nourished, chronic ill-appearing Head: Normocephalic, atraumatic. Cardio: Regular rate and rhythm, s1 and s2 normal, no murmur appreciated. Resp: Clear to auscultation bilaterally, no rhonchi, rales, wheezing or rubs. Extremities: No deformity, no edema, no cyanosis, capillary refill less than 2 seconds, peripheral pulses palpable and strong. Integumentary: [place], warm, and dry, intact without lesion, no rashes. Course Course Emergency Course: Portions of this record may have been created with voice recognition software. Level of Care: Express Care Visit Vital Signs Vital signs: Vital signs reviewed MDM - Chest Pain MDM Narrative Medical decision making narrative: At the time of visit patient is sitting up on the exam stretcher. Patient appears to be nontoxic. EKG: EKG shows sinus rhythm with a heart rate of 81 beats per minute with a age indeterminate inferior myocardial infarction with posterior extension. Q-waves throughout the EKG. No new ST elevation or depression noted. Plan: Patient reporting pain across the shoulder blades which is pain she has experienced before with her MIs x2. Patient has extensive coronary artery disease history. Recommend transfer to the ER for further evaluation Supportive measures were discussed with the patient and they voiced understanding discharge instructions and agrees to treatment plan. Return precautions reviewed Differential Diagnosis Differential diagnosis: Likely fracture of rib, pneumothorax, stable angina, unstable angina pectoris, atypical chest pain, st elevation myocardial infarction, costochondritis, chest pain and biliary colic ECG Data EKG #1: Attestation: I personally reviewed and interpreted this ECG as follows: ECG completion date: 04/19/24 ECG completion time: 09:19 Prior ECG tracings: not available for review Interpretation: EKG shows sinus rhythm with heart rate of 81 beats per minute. Left atrial enlargement with an inferior OR of indeterminate age with posterior extension. Prominent R-waves in V1 and V2. Prominent Q-waves in lead to and AVF. TN interval is 157 milliseconds, QRS durations 106 milliseconds, QT-QTC is 384- 422 milliseconds, P-R-T axis is 64 83 6 Discharge Plan Discharge Clinical Impression: Back pain Qualifiers: Back pain location: thoracic back pain Chronicity: acute Back pain laterality: bilateral Qualified Code(s): M54.6 - Pain in thoracic spine Nausea & vomiting Qualifiers: Vomiting type: unspecified Qualified Code(s): R11.2 - Nausea with vomiting, unspecified Patient Disposition: Acute Care Hospital Condition: Guarded Prognosis Patient Language: Com[place]an Prescriptions: No Action fluticasone propionate [Flonase Allergy Relief] 50 mcg/actuation spray,suspension 2 spray intranasal DAILY PRN (Reason: nasal congestion) Qty: 15.8 0RF Rx Instructions: administer into each nostril Adult Aspirin 81 mg Tablet 81 mg PO DAILY carvedilol 6.25 mg tablet 6.25 mg PO DAILY potassium chloride 10 mEq tablet extended release 10 meq PO DAILY lisinopril 5 mg tablet 5 mg PO DAILY Lipitor 40 mg PO DAILY nitroglycerin 4 mg PO DAILY Xarelto 2.5 mg tablet 2.5 mg PO DAILY Entresto 49-51 mg tablet 1 tablet PO DAILY tramadol 50 mg tablet 50 mg PO Q6H PRN (Reason: pain) 3 Days Qty: 12 0RF spironolactone 25 mg tablet 25 mg PO DAILY furosemide 20 mg tablet 20 mg PO DAILY ezetimibe 10 mg tablet 10 mg PO DAILY Jardiance 25 mg tablet 25 mg PO DAILY ondansetron 4 mg tablet,disintegrating 4 mg PO Q6H PRN (Reason: nausea and vomiting) Qty: 15 0RF diphenoxylate-atropine [Lomotil] 2.5-0.025 mg tablet 1 tablet PO TID PRN (Reason: diarrhea) Qty: 15 0RF albuterol sulfate 90 mcg/actuation HFA aerosol inhaler 2 puff INHALATION QID PRN (Reason: shortness of breath or wheezing) Qty: 8 0RF Follow-up/Referrals: [facility] [Primary Care Provider] - Time of Disposition: 09:35 Quality NIHSS Nursing Documentation ED NIHSS nursing documentation: reviewed/agree
== END 2024-04-19 09:28 | disposition short-term general hospital (02) ==
PROVIDERS: Emergency Provider Nurse Practitioner Family
DX: M54.6 Pain in thoracic spine (principal); R11.2 Nausea with vomiting, unspecified; Z87.891 Personal history of nicotine dependence; F12.90 Cannabis use, unspecified, uncomplicated; I10 Essential (primary) hypertension; E78.5 Hyperlipidemia, unspecified; I25.10 Atherosclerotic heart disease of native coronary artery without angina pectoris; E11.9 Type 2 diabetes mellitus without complications; Z79.84 Long term (current) use of oral hypoglycemic drugs; I25.2 Old myocardial infarction; Z95.1 Presence of aortocoronary bypass graft; Z86.73 Personal history of transient ischemic attack (TIA), and cerebral infarction without residual deficits; Z79.82 Long term (current) use of aspirin; Z79.01 Long term (current) use of anticoagulants
CPT/HCPCS: 93005; 99215; G0463

== ENCOUNTER 2024-09-09 10:38 | Emergency (ER) | payer BC, MEDICAID, SELFPAY ==
--- NOTE | 2024-09-09 10:46 | ED_ITS ---
HPI - Back Pain/Injury General Chief Complaint: Headache Stated Complaint: headache/back pain Time Seen by Provider: 09/09/24 10:46 Source: patient Mode of arrival: ambulatory Limitations: no limitations History of Present Illness HPI Narrative: Lula is a 49-year-old female patient presenting to the clinic today with complaints of headache that began Sunday night after his ring head on a metal bar. She reports she was leaving work and it was raining and she did not see the metal bar and ran into it. Denies any loss of consciousness. Reporting frontal headache rating it a 10/10 currently. Having associated lightheadedness, photosensitivity, and nausea and vomiting. History of stroke and heart attack with triple bypass in the past-takes Plavix. History of migraine headaches. Also reporting some chronic back pain. She denies any chest pain or shortness of breath. Related Data Home Medications ?Medication ?Instructions ?Recorded ?Confirmed ?Last Taken ?Type aspirin 81 mg tablet 81 mg PO DAILY 11/16/20 12/23/23 Unknown History Lipitor 40 mg PO DAILY 11/11/21 12/23/23 Unknown History carvedilol 6.25 mg tablet 6.25 mg PO DAILY 11/11/21 12/23/23 Unknown History lisinopril 5 mg tablet 5 mg PO DAILY 11/11/21 12/23/23 Unknown History nitroglycerin 4 mg PO DAILY 11/11/21 12/23/23 Unknown History potassium chloride 10 mEq 10 meq PO DAILY 11/11/21 12/23/23 Unknown History tablet,extended release rivaroxaban 2.5 mg tablet (Xarelto) 2.5 mg PO DAILY 01/31/23 12/23/23 Unknown History sacubitril 49 mg-valsartan 51 mg 1 tablet PO DAILY 01/31/23 12/23/23 Unknown History tablet (Entresto) empagliflozin 25 mg tablet 25 mg PO DAILY 12/23/23 12/23/23 Unknown History (Jardiance) ezetimibe 10 mg tablet 10 mg PO DAILY 12/23/23 12/23/23 Unknown History furosemide 20 mg tablet 20 mg PO DAILY 12/23/23 12/23/23 Unknown History spironolactone 25 mg tablet 25 mg PO DAILY 12/23/23 12/23/23 Unknown History Allergies Allergy/AdvReac Type Severity Reaction Status Date / Time Penicillins Allergy Intermediate Hives / Verified 09/09/24 10:57 Red Face tomato Allergy Mild hives Verified 09/09/24 10:57 Review of Systems Review of Systems: Pertinent positives per HPI. Patient denies any fever, chills, rash, visual changes, dizziness, cough, runny nose, sore throat, shortness of breath, chest pain, palpitations, nausea, vomiting, diarrhea, constipation, abdominal pain, or any urinary issues. PMFSH Past Medical History Medical History Hyperlipidemia Hypertension Coronary artery disease Surgical History Surgical History Hx of CABG Family History Family History Mother Family history non-contributory Social History Social History Smoking status: Current some day smoker Tobacco type: cigarettes Smoking end date: 05/03/22 Substance use: current Substance use type: marijuana Living arrangements: with family Gender identity (if verbalized by the patient): Female Comments At the time of my signature, I reviewed and agree with the nursing past medical, surgical, social, and family history. There is no relevant family history pertinent to the patient complaint. Exam Narrative: General: Well-developed, well nourished, in no apparent distress Head: Normocephalic, atraumatic Eyes: Pupils equally round and reactive to light bilaterally, EOM intact, sclera and conjunctive clear, no discharge, lids normal Ears: TMs intact and clear, ear canals clear, no drainage, grossly hearing normal. Nose: Nares patent, no discharge, no inflammation, no sinus tenderness. Mouth: Oropharynx without lesions or masses, good dentition, MMM. Tongue midline, even rise and fall of uvula Neck: Supple, trachea midline, no enlargement of anterior or posterior cervical nodes, no thyroid masses or goiter palpable. Cardio: Regular rate and rhythm, s1 and s2 normal, no murmur appreciated. Resp: Clear to auscultation bilaterally anteriorly and posteriorly, no rhonchi, rales, wheezing or rubs Musculoskeletal: No deformity, grossly normal range of motion, muscle strength strong and equal, peripheral pulse strong, no edema, no cyanosis, normal gait and station Neuro: Alert and oriented x4 with normal speech, no focal deficits, cranial nerves I through XII intact, muscle strength 5 out of 5, sensation intact bilaterally Course Course Emergency Course: Portions of this record may have been created with voice recognition software. Level of Care: Express Care Visit Vital Signs Vital signs: Vital Signs Temperature 36.2 C L 09/09/24 10:47 Pulse Rate 65 09/09/24 10:47 Respiratory Rate 16 09/09/24 10:47 Blood Pressure 96/72 L 09/09/24 10:47 Pulse Oximetry 96 09/09/24 10:47 Oxygen Delivery Room Air 09/09/24 10:47 Temperature 36.2 C L 09/09/24 10:47 Pulse Rate 65 09/09/24 10:47 Respiratory Rate 16 09/09/24 10:47 Blood Pressure 96/72 L 09/09/24 10:47 Pulse Oximetry 96 09/09/24 10:47 Oxygen Delivery Room Air 09/09/24 10:47 Vital signs reviewed Transfer Transfered to: [place] Transportation: Other (private car) Transfer rationale: Head injury with headache-rule out migraine headache, brain bleed, CVA Accepting physician: Dr. Mora Transfer comments: Private car MDM - Back Pain/Injury MDM Narrative Medical decision making narrative: At the time of visit patient is resting comfortably on the exam table. Patient appears to be nontoxic. Plan: Recommend transfer to the emergency room as patient is rating her pain 10/10 and she has been taking Tylenol without relief. Patient is taking Plavix. History of heart attack with triple bypass and stroke in the past. Patient agrees to transfer. Patient would like to go to [place] the emergency room. Contacted Dr. Mora at [place] [facility] and report was given for continuity of care. He accepts patient for transfer. Differential Diagnosis Differential diagnosis: Likely other (Concussion without loss of consciousness, CVA, brain bleed, migraine headache) Discharge Plan Discharge Clinical Impression: Headache Qualifiers: Headache type: other headache syndrome Qualified Code(s): G44.89 - Other headache syndrome Patient Disposition: Acute Care Hospital Condition: Stable Patient Language: Kazakh Prescriptions: No Action aspirin [Adult Aspirin] 81 mg Tablet 81 mg PO DAILY carvedilol 6.25 mg tablet 6.25 mg PO DAILY potassium chloride 10 mEq tablet extended release 10 meq PO DAILY lisinopril 5 mg tablet 5 mg PO DAILY Lipitor 40 mg PO DAILY nitroglycerin 4 mg PO DAILY Xarelto 2.5 mg tablet 2.5 mg PO DAILY Entresto 49-51 mg tablet 1 tablet PO DAILY spironolactone 25 mg tablet 25 mg PO DAILY furosemide 20 mg tablet 20 mg PO DAILY ezetimibe 10 mg tablet 10 mg PO DAILY Jardiance 25 mg tablet 25 mg PO DAILY Follow-up/Referrals: [facility] [Primary Care Provider] - Time of Disposition: 11:00 Quality NIHSS Nursing Documentation ED NIHSS nursing documentation: reviewed/agree
[2024-09-09 10:47] VITALS: BP 96/72; PULSE 65; RESP 16; TEMP 36.2; O2SAT 96
== END 2024-09-09 11:07 | disposition short-term general hospital (02) ==
PROVIDERS: Emergency Provider Nurse Practitioner Family
DX: G44.89 Other headache syndrome (principal); I10 Essential (primary) hypertension; E78.5 Hyperlipidemia, unspecified; I25.10 Atherosclerotic heart disease of native coronary artery without angina pectoris; Z87.891 Personal history of nicotine dependence
CPT/HCPCS: 99212; G0463

== ENCOUNTER 2024-09-09 11:21 | Emergency (ER) | payer BC, MEDICAID, SELFPAY ==
--- NOTE | ~2024-09-09 | CT_ITS ---
Non-contrast Head CT History: Trauma Technique: Axial non-contrast imaging of the brain was performed. Dose reduction technique was used on this scan by utilizing automated exposure control and iterative reconstruction technique. The dose -length product (DLP) was 529.67 mGy-cm. Findings: There is no evidence of intracranial hemorrhage, mass lesion, or acute infarct. Brain par enchyma appears normal. The ventricles and subarachnoid spaces are normal in size. The calvarium ap pears normal. The visualized paranasal sinuses and mastoid air cells are clear. Impression: No significant abnormality seen. Reviewed, dictated and finalized at location . Impression: No significant abnormality seen.
--- NOTE | ~2024-09-09 | CT_ITS ---
Noncontrast CT scan of the cervical spine Technique: Multiple contiguous axial [address] images of the cervical spine were obtained and rec onstructed in 2D sagittal and coronal planes on the acquisition scanner. Dose reduction technique was used on this scan by utilizing automated exposure control, adjustment of the mA and/or kV according to patient size. The dose-length product (DLP) was 386.42 mGy-cm. Clinical History: Pain Findings: No fractures or dislocations. There are mild facet joint degenerative changes.. No prever tebral soft tissue swelling. Impression: No fracture or subluxation of the cervical spine. Reviewed, dictated and finalized at location M. Impression: No fracture or subluxation of the cervical spine.
[2024-09-09 11:23] VITALS: BP 112/68; PULSE 86; RESP 17; TEMP 36.9; O2SAT 98
--- NOTE | 2024-09-09 12:18 | ED.GENADULT ---
HPI - General Adult General Chief complaint: Head Injury Stated complaint: sent by for CT, hit head sunday still ROGERS Time Seen by Provider: 09/09/24 11:48 History of Present Illness HPI narrative: Lula Ramirez is a 49-year-old female who presents today with complaints of continued headache. She states that 3 days ago as she has the forehead on a metal bar while she was trying to 94 and she started to have pain to the area of her head immediately. She states that following day she had nausea with vomiting. She has not vomited since but continues to feel nauseous. She states she has continued headache and light sensitivity to the sun low rating headache at that to 01/09. She denies any dizziness denies any vision changes denies numbness or tingling. She also states that she is having some neck pain. She is also on Xareto for her heart. 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 Home Medications ?Medication ?Instructions ?Recorded ?Confirmed ?Last Taken ?Type aspirin 81 mg tablet 81 mg PO DAILY 11/16/20 09/09/24 Unknown History Lipitor 40 mg PO DAILY 11/11/21 09/09/24 Unknown History carvedilol 6.25 mg tablet 6.25 mg PO DAILY 11/11/21 09/09/24 Unknown History lisinopril 5 mg tablet 5 mg PO DAILY 11/11/21 09/09/24 Unknown History nitroglycerin 4 mg PO DAILY 11/11/21 12/23/23 Unknown History potassium chloride 10 mEq 10 meq PO DAILY 11/11/21 12/23/23 Unknown History tablet,extended release rivaroxaban 2.5 mg tablet (Xarelto) 2.5 mg PO DAILY 01/31/23 12/23/23 Unknown History sacubitril 49 mg-valsartan 51 mg 1 tablet PO DAILY 01/31/23 12/23/23 Unknown History tablet (Entresto) empagliflozin 25 mg tablet 25 mg PO DAILY 12/23/23 12/23/23 Unknown History (Jardiance) ezetimibe 10 mg tablet 10 mg PO DAILY 12/23/23 12/23/23 Unknown History furosemide 20 mg tablet 20 mg PO DAILY 12/23/23 12/23/23 Unknown History spironolactone 25 mg tablet 25 mg PO DAILY 12/23/23 12/23/23 Unknown History Allergies Allergy/AdvReac Type Severity Reaction Status Date / Time Penicillins Allergy Intermediate Hives / Verified 09/09/24 11:22 Red Face tomato Allergy Mild hives Verified 09/09/24 11:22 Review of Systems Review of Systems: All systems reviewed & are unremarkable except as noted in HPI and below PMFSH Past Medical History Medical History Hyperlipidemia Hypertension Coronary artery disease Surgical History Surgical History Hx of CABG Family History Family History Mother Family history non-contributory Social History Social History Smoking status: Current some day smoker Tobacco type: cigarettes Smoking end date: 05/03/22 Substance use: current Substance use type: marijuana Living arrangements: with family Gender identity (if verbalized by the patient): Female Exam Narrative: GENERAL: Well-appearing, well-nourished, and in no acute distress. HEAD: Normocephalic, atraumatic. No obvious trauma to forehead from trauma 3 days ago. EYES: PERRLA and EOMI no nystagmus noted ENT: Nares clear, no rhinorrhea or epistaxis. Mucous membranes moist. Oropharynx without tonsillar hypertrophy exudate or other lesions. NECK: Supple. No adenopathy or masses. No carotid bruits or JVD CHEST: Clear to auscultation. No respiratory distress. No wheezes rales or rhonchi HEART: Regular rate and rhythm. No murmur heard. Normal peripheral pulses. ABDOMEN: Soft, nontender, nondistended, normal active bowel sounds. EXTREMITIES: Normal range of motion. No edema. SKIN: Warm, dry, no rash. NEURO: No focal deficits. Alert and oriented x3. PSYCH: Normal mood and affect. Course Vital Signs Vital signs: Vital Signs Temperature 36.9 C 09/09/24 11:23 Pulse Rate 86 09/09/24 11:23 Respiratory Rate 17 09/09/24 11:23 Blood Pressure 112/68 09/09/24 11:23 Pulse Oximetry 98 09/09/24 11:23 Oxygen Delivery Room Air 09/09/24 11:23 Temperature 36.4 C 09/09/24 14:09 Pulse Rate 64 09/09/24 14:09 Respiratory Rate 16 09/09/24 14:09 Blood Pressure 115/66 09/09/24 14:09 Pulse Oximetry 97 09/09/24 14:09 Oxygen Delivery Room Air 09/09/24 11:23 Medical Decision Making MDM Narrative Medical decision making narrative: 49-year-old female who presents with continued headache after hitting her head 3 days ago. She also states that she has nausea. She does have history of migraines but states this 1 feels different. She is on blood thinners. Exam is essentially benign alert and oriented x4, pupils equal reactive no nystagmus noted EOM intact No focal neuro deficits noted on exam Concern for, headache versus migraine versus head bleed Plan to check head CT, cervical spine CT while treating her migraine with Compazine, Benadryl 500 mL of saline and Flexeril [address] scans are negative for acute findings Patient feels significantly better will be d/c home with continued Zofran / Tylenol for pain close PCP follow up Return precautions discussed Medical Records Medical records reviewed: Yes I reviewed the external patient's medical records. Vital Signs Vital Signs: Vital Signs Temperature 36.9 C 09/09/24 11:23 Pulse Rate 86 09/09/24 11:23 Respiratory Rate 17 09/09/24 11:23 Blood Pressure 112/68 09/09/24 11:23 Pulse Oximetry 98 09/09/24 11:23 Oxygen Delivery Room Air 09/09/24 11:23 Temperature 36.4 C 09/09/24 14:09 Pulse Rate 64 09/09/24 14:09 Respiratory Rate 16 09/09/24 14:09 Blood Pressure 115/66 09/09/24 14:09 Pulse Oximetry 97 09/09/24 14:09 Oxygen Delivery Room Air 09/09/24 11:23 Vitals reviewed by me Imaging Data Radiologist's impression: Impressions Cervical Spine CT 09/09/24 13:41 Impression: No fracture or subluxation of the cervical spine. Head CT 09/09/24 13:41 Impression: No significant abnormality seen. Discharge Plan Discharge Clinical Impression: Headache Qualifiers: Headache type: other headache syndrome Qualified Code(s): G44.89 - Other headache syndrome Acute head trauma Qualifiers: Encounter type: initial encounter Qualified Code(s): S09.90XA - Unspecified injury of head, initial encounter Patient Disposition: Home Condition: Stable Instructions: Antibiotic Form Additional Instructions: Continue to rest / hydrate take Tylenol and Zofran as needed for headache Follow up with your PCP in 1 week If you develop any worsening symptoms or concerns return to the ER. Patient Language: Slovak Prescriptions: New ondansetron 4 mg tablet,disintegrating 4 mg PO Q6H PRN (Reason: nausea and vomiting) Qty: 10 0RF No Action aspirin [Adult Aspirin] 81 mg Tablet 81 mg PO DAILY carvedilol 6.25 mg tablet 6.25 mg PO DAILY potassium chloride 10 mEq tablet extended release 10 meq PO DAILY lisinopril 5 mg tablet 5 mg PO DAILY Lipitor 40 mg PO DAILY nitroglycerin 4 mg PO DAILY Xarelto 2.5 mg tablet 2.5 mg PO DAILY Entresto 49-51 mg tablet 1 tablet PO DAILY spironolactone 25 mg tablet 25 mg PO DAILY furosemide 20 mg tablet 20 mg PO DAILY ezetimibe 10 mg tablet 10 mg PO DAILY Jardiance 25 mg tablet 25 mg PO DAILY Follow-up/Referrals: [facility] [Primary Care Provider] - 1 Week Stand Alone Forms: Work/School Release IP Time of Disposition: 13:48
--- OUTSIDE RECORDS SUMMARY | 2024-09-09 12:42 | XMS_ITS | CONTINUITY OF CARE DOCUMENT ---
Author Name antoinette curry Address Unknown Organization [facility] Address [address] [place] [address] Phone [phone] Care Team Providers Care Gastroenterology Technician Name Role Phone Mark Phoenix MD Unavailable [phone] Mark Phoenix MD Unavailable [phone] INSURANCE PROVIDERS Payer name Policy type / Coverage type Robbie red alliance party ID [employer] plan [id number]
[2024-09-09] MEDS: CYCLOBENZAPRINE HCL 10 MG TABLET PO (13:01)
--- OUTSIDE RECORDS SUMMARY | 2024-09-09 13:03 | XMS_ITS | CONTINUITY OF CARE DOCUMENT ---
Author Name antoinette curry Address Unknown Organization [facility] Address [address] [place] [address] Phone [phone] Care Team Providers Care Research Program Manager Name Role Phone Mark Phoenix MD Unavailable [phone] Mark Phoenix MD Unavailable [phone] INSURANCE PROVIDERS Payer name Policy type / Coverage type Robbie red constitution party ID [employer] [place] Administr ation plan [id number]
--- OUTSIDE RECORDS SUMMARY | 2024-09-09 13:03 | XMS_ITS | Patient Health Record ---
Author Organization [facility] Address [address] [place], [place] [id number] Care Team Providers Care Electric Track Switch Maintainer Name Role Phone ALLA BARBOSA Unavailable [phone] Reason For Referral No Information Plan Of Treatment No Information Insurance Providers Payer Name Payer Address Payer Phone Subscriber Number Group Number Insured Name Patient Relationship to Insured Coverage Start Date Coverage End Date COVID19 HRSA Uninsured Testing and Treatment [facility] [address] [address] [place], [place] [id number] Lula Ramirez Self - patient is the insured
[2024-09-09] MEDS: SODIUM CHLORIDE 0.9% IV 500 ML 999 ML IV CONT (13:06)
[2024-09-09] MEDS: diphenhydrAMINE HCl INJ 50 MG/ML VIAL 25 MG IV PUSH (13:07)
[2024-09-09] MEDS: PROCHLORPERAZINE EDISYLATE 10 MG/2 ML VIAL IV PUSH (13:08)
[2024-09-09 14:09] VITALS: BP 115/66; PULSE 64; RESP 16; TEMP 36.4; O2SAT 97
== END 2024-09-09 14:12 | disposition home or self-care (01) ==
PROVIDERS: Emergency Provider Nurse Practitioner Family
DX: G44.89 Other headache syndrome (principal); S09.90XA Unspecified injury of head, initial encounter; I10 Essential (primary) hypertension; I25.10 Atherosclerotic heart disease of native coronary artery without angina pectoris; E78.5 Hyperlipidemia, unspecified; Z95.1 Presence of aortocoronary bypass graft; Z87.891 Personal history of nicotine dependence; Z79.82 Long term (current) use of aspirin; Z79.899 Other long term (current) drug therapy; Z79.01 Long term (current) use of anticoagulants; Z79.84 Long term (current) use of oral hypoglycemic drugs; W22.09XA Striking against other stationary object, initial encounter
CPT/HCPCS: 70450; 72125; 96361; 96374; 96375; 99284; A9270; J0780; J1200; J7040